=== PATIENT | male | born 1990 | race Caucasian/White ===

== ENCOUNTER 2018-07-12 00:26 | Emergency (ER) | payer SELFPAY ==
[2018-07-12] MEDS ORDERED: LORazepam 2 MG/ML INJ IM ONE (00:31)
[2018-07-12] MEDS ORDERED: HALOPERIDOL LACT 5 MG/ML INJ IM ONE (00:31)
--- NOTE | 2018-07-12 00:34 | EDPHY ---
H & P Time Seen by Provider: 07/12/18 00:30 HPI/ROS: Chief Complaint: Short of breath, alcohol intoxication HPI: 27-year-old male with a history of asthma has been drinking alcohol tonight became short of breath. He called 911. On EMS arrival the patient was clearly quite intoxicated. During the ride here he became increasingly agitated. He became aggressive with paramedics and required physical restraint. He normally takes Advair albuterol and Ativan. He has not taken his medications for 3 days. Denies cough. Denies fevers or chills. Does admit to drinking alcohol tonight. Denies any other drug use. No chest pain. No falls or head injuries. ROS: 10 systems were reviewed and were negative except those elements noted in the HPI. PMH: Asthma Social History: No smoking, occasional alcohol, no recreational drug use Family History: non-contributory Physical Exam: Gen: Awake, Alert, agitated, combative, restrained HEENT: Nose: no rhinorrhea Eyes: PERRLA, EOMI Mouth: Moist mucosa Neck: Supple, no JVD Chest: nontender, lungs clear to auscultation Heart: S1, S2 normal, no murmur Abd: Soft, non-tender, no guarding Back: no CVA tenderness, no midline tenderness Ext: no edema, non-tender Skin: no rash Neuro: CN II-XII intact, Sensation grossly intact, Strength 5/5 in bilateral upper and lower extremities Constitutional: Initial Vital Signs Heart Rate 100 07/12/18 00:30 Respiratory Rate 18 07/12/18 00:30 Blood Pressure 120/83 H 07/12/18 00:30 O2 Sat (%) 95 07/12/18 00:30 O2 Delivery Mode Room Air O2 (L/minute) 2 Allergies/Adverse Reactions: tramadol Allergy (Verified 07/12/18 00:33) Home Medications: Medication Instructions Recorded Advair 100/50 (*) 07/12/18 Flovent Diskus 07/12/18 Lorazepam 07/12/18 traZODone 07/12/18 Medical Decision Making ED Course/Re-evaluation: Patient is awake and alert and ambulating unassisted in the emergency department. Patient will be going home with a sober ride. - Data Points Medications Given: Discontinued Medications Haloperidol Lactate (Haldol Injection) 5 mg IM EDNOW ONE Stop: 07/12/18 00:32 Last Admin: 07/12/18 00:39 Dose: 5 mg Lorazepam (Ativan Injection) 2 mg IM EDNOW ONE Stop: 07/12/18 00:32 Last Admin: 07/12/18 00:39 Dose: 2 mg Ondansetron HCl (Zofran Odt) 4 mg PO EDNOW ONE Stop: 07/12/18 00:58 Last Admin: 07/12/18 00:57 Dose: 4 mg Departure - Departure Disposition: Home, Routine, Self-Care Clinical Impression: Alcoholic intoxication Condition: Good Instructions: Alcohol Intoxication (ED) Referrals: Patient,NotPresent [Primary Care Provider] - As per Instructions
[2018-07-12] MEDS ORDERED: ONDANSETRON DISINTEGRATING 4 MG TAB ONE (00:53)
[2018-07-12] MEDS ORDERED: ONDANSETRON DISINTEGRATING 4 MG TAB PO ONE (00:57)
[2018-07-12 06:22] VITALS: BP 104/60
== END 2018-07-12 06:21 | disposition home or self-care (01) ==
DX: F10.129 Alcohol abuse with intoxication, unspecified (principal)
CPT/HCPCS: J1630; J2060

== ENCOUNTER 2018-11-26 17:39 | Inpatient (IN) | payer MEDICAID ==
[2018-11-26] MEDS ORDERED: LORazepam 2 MG/ML INJ IVP ONE ×2 (17:43→19:09)
--- NOTE | 2018-11-26 17:44 | EDPHY ---
H & P Time Seen by Provider: 11/26/18 17:42 HPI/ROS: CHIEF COMPLAINT: Chest pain, dyspnea, abdominal pain , possible GI bleed HISTORY OF PRESENT ILLNESS: 28-year-old male arrives via ambulance. States that he has been on a 2 week binge of alcohol, called 911 today because of 3 days of intractable vomiting, possible hematemesis, melanotic appearing stools, epigastric pain, chest pain, dyspnea, anxiety. Denies seizure. Denies trauma or fall. Denies suicidal or homicidal ideation PRIMARY CARE PROVIDER: REVIEW OF SYSTEMS: 10 systems reviewed and negative with the exception of the elements mentioned in the history of present illness PAST MEDICAL & SURGICAL HISTORY: history of alcoholism SOCIAL HISTORY: Last drink of alcohol 4 hr prior to EMS arrival PHYSICAL EXAM (Prior to examination, patient consented to physical exam, hands were washed and my usual and customary physical exam procedures followed) 1) GENERAL: [Well-developed, well-nourished, alert and oriented. Appears , anxious appearing, appears uncomfortable, pacing 2) HEAD: Normocephalic, atraumatic 3) HEENT: Pupils equal, round, reactive to light bilaterally. Sclera anicteric. Nasopharynx, oropharynx, clear, no lesions. Dry mucous membranes. Ears bilaterally with normal tympanic membranes. 4) NECK: Full range of motion, no meningeal signs. 5) LUNGS: Clear auscultation bilaterally, no wheezes, no rhonchi, no retractions. 6) HEART: Regular rate and rhythm, no murmur, no heave, no gallop. 7) ABDOMEN: No guarding, no rebound, no focal tenderness, negative McBurney's, negative Lux's, negative Rovsing's, negative peritoneal sign, 8) MUSCULOSKELETAL: Moving all extremities, no focal areas of tenderness, no obvious trauma. No peripheral edema or discoloration. 9) BACK: No CVA tenderness, no midline vertebral tenderness, no fluctuance, no step-off, no obvious trauma, no visual or palpable abnormality. 10) SKIN: No rash, no petechiae. 11) Psychiatric: Patient is oriented X 3, there is no agitation. 12) RECTAL: Patient declines rectal exam DIFFERENTIAL DIAGNOSIS: In no particular order, including but not limited to myocardial ischemia, acute alcohol withdrawal, Jane-Crystal tear, GI bleed, delirium tremens, pulmonary embolus, chest wall pain, pleural inflammation and pulmonary infectious causes. - Medical/Surgical History Hx Asthma: Yes Hx Chronic Respiratory Disease: No Hx Diabetes: No Hx Cardiac Disease: No Hx Renal Disease: No Hx Cirrhosis: No Hx Alcoholism: No Hx HIV/AIDS: No Hx Splenectomy or Spleen Trauma: No Other PMH: inguinal hernia with repair, asthma, chronic pain - Social History Smoking Status: Never smoked Constitutional: Initial Vital Signs Temperature (C) 37.3 C 11/26/18 17:44 Heart Rate 130 H 11/26/18 17:44 Respiratory Rate 19 11/26/18 17:44 Blood Pressure 137/90 H 11/26/18 17:44 O2 Sat (%) 95 11/26/18 17:44 O2 Delivery Mode Room Air Allergies/Adverse Reactions: tramadol Allergy (Verified 11/26/18 21:42) Hives Home Medications: Medication Instructions Recorded Advair 100/50 (*) 07/12/18 Flovent Diskus 07/12/18 Lorazepam 07/12/18 traZODone 07/12/18 Melatonin [Melatonin 3 MG (*)] 3 mg PO HS PRN 11/26/18 Sumatriptan Succinate [Imitrex] 11/26/18 Medical Decision Making - Diagnostics Imaging Results: Imaging Impressions Chest X-Ray 11/26/18 17:43 Impression: Normal. ED Course/Re-evaluation: 6:04 p.m.: Patient notes dark possible bloody appearance to his emesis as well as to his bowel movements. I recommended digital rectal exam which he declines. 7:14 p.m.: I entered the room to re-evaluated the patient. He received 2 mg of Ativan, IV fluids he remains tachycardic. He has vomited bloody appearing emesis on the floor. He remains appearing uncomfortable complaints of epigastric and chest pain. He has received Protonix and Zantac. His D-dimer is negative which I think adequately excludes pulmonary embolus in this patient whom I have a moderate pretest suspicion. Doubt AR in the presence of negative troponin and being symptomatic for 2-3 days. Chest x-ray also shows no evidence of pneumothorax, no evidence of pneumomediastinum or acute infectious pathology. Plan will be administration of further benzodiazepine, more than likely hospital admission for suspected acute alcohol withdrawal the patient may be acutely intoxicated as well. Alcohol level pending at this time. 8:51 p.m.: Patient has been observed in the ER for multiple hours. He has been CIWA protocol. He has been given multiple rounds of IV fluids as well as benzodiazepine, remains tachycardic. I do not think the patient can be discharged home or [facility] to [facility]. He also noted to have hematemesis , given Protonix and Zantac, GI cocktail as well as continued IV fluids. He declines digital rectal exam. Consulted with Dr. Godinez this time will admit patient. Care of patient under supervision of secondary supervising physician Dr Martinez with whom I discussed case. - Data Points Laboratory Results: Laboratory Results 11/26/18 17:50 11/26/18 11/26/18 11/26/18 19:13 18:30 18:17 PT 14.8 SEC SEC (12.0-15.0) INR 1.14 (0.83-1.16) APTT 28.7 SEC SEC (23.0-38.0) D-Dimer 0.29 ug/mLFEU ug/mLFEU (0.00-0.50) Sodium Potassium Chloride Carbon Dioxide Anion Gap BUN Creatinine Estimated GFR Glucose Calcium Total Bilirubin Conjugated Bilirubin Unconjugated Bilirubin AST ALT Alkaline Phosphatase POC Troponin I 0.00 ng/mL ng/mL (0.00-0.08) Total Protein Albumin Lipase Stool Occult Bld Scrn POSITIVE H (NEGATIVE) Ethyl Alcohol 11/26/18 17:50 PT INR APTT D-Dimer Sodium 141 mEq/L mEq/L (135-145) Potassium 3.7 mEq/L mEq/L (3.5-5.2) Chloride 101 mEq/L mEq/L (97-110) Carbon Dioxide 19 mEq/l L mEq/l (22-31) Anion Gap 21 mEq/L H mEq/L (6-14) BUN 14 mg/dL mg/dL (7-23) Creatinine 1.0 mg/dL mg/dL (0.7-1.3) Estimated GFR > 60 Glucose 131 mg/dL H mg/dL (70-100) Calcium 9.4 mg/dL mg/dL (8.5-10.4) Total Bilirubin 0.9 mg/dL mg/dL (0.1-1.4) Conjugated Bilirubin 0.4 mg/dL mg/dL (0.0-0.5) Unconjugated Bilirubin 0.5 mg/dL mg/dL (0.0-1.1) AST 65 IU/L H IU/L (17-59) ALT 76 IU/L H IU/L (21-72) Alkaline Phosphatase 88 IU/L IU/L (38-126) POC Troponin I Total Protein 8.6 g/dL H g/dL (6.3-8.2) Albumin 5.2 g/dL H g/dL (3.5-5.0) Lipase 155 IU/L IU/L (23-300) Stool Occult Bld Scrn Ethyl Alcohol 359 mg/dL H mg/dL (0-10) Medications Given: Thiamine HCl 500 mg/ Sodium (Chloride) 105 mls @ 210 mls/hr IV Q24H MAUREEN Stop: 05/25/19 21:44 Last Admin: 11/26/18 22:04 Dose: 105 mls Lorazepam (Ativan Injection) 0 mg IVP Q1H PRN; Protocol PRN Reason: Alcohol Withdrawal w/IV access Stop: 11/27/18 07:27 Last Admin: 11/26/18 20:21 Dose: 2 mg Lorazepam (Ativan) 0 mg PO Q4HRS PRN; Protocol PRN Reason: Alcohol W/D w/ No IV Access Stop: 05/25/19 21:40 Last Admin: 11/26/18 22:04 Dose: 2 mg Ondansetron HCl (Zofran) 4 mg IVP Q4HRS PRN PRN Reason: Nausea/Vomiting, Can't Take PO Stop: 05/25/19 21:38 Last Admin: 11/26/18 22:10 Dose: 4 mg Discontinued Medications Al Hydroxide/Mg Hydroxide (Maalox Susp) 30 ml PO ONCE ONE Stop: 11/26/18 19:22 Last Admin: 11/26/18 19:27 Dose: 30 ml Al Hydroxide/Mg Hydroxide (Maalox Susp) 30 ml PO ONCE ONE Stop: 11/26/18 21:39 Last Admin: 11/26/18 22:04 Dose: 30 ml Hyoscyamine Sulfate (Levsin, Hyomax-Sl) 0.25 mg PO ONCE ONE Stop: 11/26/18 19:22 Last Admin: 11/26/18 19:27 Dose: 0.25 mg Hyoscyamine Sulfate (Levsin, Hyomax-Sl) 0.25 mg PO ONCE ONE Stop: 11/26/18 21:39 Last Admin: 11/26/18 22:03 Dose: 0.25 mg Sodium Chloride (Ns) 1,000 mls @ 0 mls/hr IV ONCE ONE; Wide Open PRN Reason: Protocol Stop: 11/26/18 18:07 Last Admin: 11/26/18 18:07 Dose: 1,000 mls Sodium Chloride (Ns) 1,000 mls @ 0 mls/hr IV ONCE ONE PRN Reason: Wide Open Stop: 11/26/18 19:22 Last Admin: 11/26/18 19:26 Dose: 1,000 mls Lidocaine (Lidocaine 2% Viscous) 15 ml PO ONCE ONE Stop: 11/26/18 19:22 Last Admin: 11/26/18 19:27 Dose: 15 ml Lidocaine (Lidocaine 2% Viscous) 15 ml PO ONCE ONE Stop: 11/26/18 21:39 Last Admin: 11/26/18 22:03 Dose: 15 ml Lorazepam (Ativan Injection) 1 mg IVP EDNOW ONE Stop: 11/26/18 17:44 Last Admin: 11/26/18 18:06 Dose: 1 mg Lorazepam (Ativan Injection) 2 mg IVP EDNOW ONE Stop: 11/26/18 19:10 Last Admin: 11/26/18 19:17 Dose: 2 mg Pantoprazole Sodium (Protonix) 40 mg IVP EDNOW ONE Stop: 11/26/18 18:34 Last Admin: 11/26/18 18:50 Dose: 40 mg Ranitidine HCl (Zantac) 50 mg IVP EDNOW ONE Stop: 11/26/18 18:33 Last Admin: 11/26/18 18:48 Dose: 50 mg Point of Care Test Results: Chemistry 11/26/18 18:17 POC Troponin I 0.00 ng/mL ng/mL (0.00-0.08) Departure - Departure Disposition: [facility] Clinical Impression: Alcoholic intoxication Qualifiers: Complication of substance-induced condition: with unspecified complication Qualified Code(s): F10.929 - Alcohol use, unspecified with intoxication, unspecified Alcohol dependence Qualifiers: Substance use status: with intoxication Complication of substance-induced condition: with unspecified complication Qualified Code(s): F10.229 - Alcohol dependence with intoxication, unspecified Alcohol withdrawal Qualifiers: Complication of substance-induced condition: with unspecified complication Qualified Code(s): F10.239 - Alcohol dependence with withdrawal, unspecified Hematemesis Qualifiers: Nausea presence: with nausea Qualified Code(s): K92.0 - Hematemesis Condition: Fair
[2018-11-26 18:02] LABS: PLATELET COUNT 225 10^3/uL (150-400)
[2018-11-26] MEDS ORDERED: NS 1,000 ML IV ONE ×2 (18:06→19:21)
[2018-11-26] MEDS ORDERED: RANITIDINE 50 MG/2 ML VIAL IVP ONE (18:32)
[2018-11-26] MEDS ORDERED: PANTOPRAZOLE SODIUM 40 MG VIAL IVP ONE (18:33)
[2018-11-26 18:49] LABS: INR 1.14 (0.83-1.16); PROTIME(PATIENT) 14.8 SEC (12.0-15.0)
[2018-11-26] MEDS ORDERED: MAG HYDROX/AL HYDROX/SIMETH 30 ML UDCUP PO ONE ×2 (19:21→21:38)
[2018-11-26] MEDS ORDERED: HYOSCYAMINE SULFATE 0.125 MG TAB PO ONE ×2 (19:21→21:38)
[2018-11-26] MEDS ORDERED: LIDOCAINE 2% VISCOUS 15 ML UDCUP PO ONE ×2 (19:21→21:38)
[2018-11-26] MEDS ORDERED: LORazepam 1 MG TAB PO PRN ×2 (19:27→21:41)
[2018-11-26] MEDS: LORazepam 2 MG/ML INJ IVP PRN ×2 (20:21→22:25)
--- NOTE | 2018-11-26 20:22 | CPEKG ---
Test Reason : OPEN Blood Pressure : / mmHG Vent. Rate : 131 BPM Atrial Rate : 133 BPM P-R Int : 065 ms QRS Dur : 089 ms QT Int : 292 ms P-R-T Axes : 149 076 -28 degrees QTc Int : 431 ms Sinus or ectopic atrial tachycardia Ventricular premature complex Confirmed by Dariela Martinez ([id number]) on 11/26/2018 8:21:51 PM Referred By: Dariela Martinez Confirmed By:Dariela Martinez
[2018-11-26] MEDS ORDERED: ACETAMINOPHEN 325 MG TAB PO PRN (21:39)
[2018-11-26] MEDS ORDERED: FLUMAZENIL 0.5 MG/5 ML MDV IVP PRN (21:41)
[2018-11-26] MEDS: THIAMINE HCL 500 MG in NS 100 ML IV SCH (22:04)
--- NOTE | 2018-11-26 22:06 | GHP ---
DATE OF ADMISSION: 11/26/2018 CHIEF COMPLAINT: Hematemesis. HISTORY OF PRESENT ILLNESS: A 28-year-old male who engages in binge alcohol intake. Over the last s everal weeks, he has been drinking quite heavily. Over the last several days, he has been having epi sodes of hematemesis. He has had intractable vomiting. He does admit to some melena as well. He do es admit also epigastric pain. He says he does not usually go into full on alcohol withdrawal. He h as never had an ulcer in the past. REVIEW OF SYSTEMS: A 10-point review of systems was obtained and negative. PAST MEDICAL HISTORY: Asthma, migraines. MEDICATIONS: Reviewed. SOCIAL HISTORY: Alcohol abuse as above. FAMILY HISTORY: Reviewed noncontributory. PHYSICAL EXAMINATION: VITAL SIGNS: Afebrile, blood pressure is 113/78, heart rate in the 1-teens. GENERAL: Patient is slightly anxious, but no apparent distress. HEENT: Nonicteric sclerae. Extrao cular movements intact. Moist mucous membranes. NECK: Supple. No thyromegaly. LUNGS: Good effor t. Clear to auscultation. CARDIOVASCULAR: Slightly tachycardic. No murmurs or gallops. ABDOMEN: Positive bowel sounds. Soft. Mild epigastric tenderness. EXTREMITIES: No clubbing, cyanosis, or edema. SKIN: Without rash. NEURO: He is alert, oriented, does not really seem like he is withdraw ing that hard. Does not have a lot in the way of tremor. LABS: Hemoglobin slightly low at 12 and MCV is actually low at 69. AST and ALT are slightly elevate d. BUN is not elevated. Alcohol level is 359. ASSESSMENT: This is a 28-year-old male presenting with hematemesis and alcohol withdrawal. PLAN: 1. Hematemesis. Hemoglobin is actually pretty good considering. Will continue watch to see as we h ydrate him. He does have microcytic anemia and so it might be worth an EGD, but would wait until he finishes withdrawing prior to that. Will put him on Protonix. I am checking iron studies. We can g donavon him IV iron if that is negative-low. 2. Alcohol withdrawal. Placed him on the protocol. /[id number]/MODL
[2018-11-26] MEDS: ONDANSETRON 4 MG/2 ML VIAL IVP PRN (22:10)
[2018-11-26] MEDS: HYDROmorphONE/DILAUDID 1 MG/ML INJ IVP PRN (23:53)
[2018-11-27] MEDS ORDERED: SUCRALFATE 1 GM/10 ML UDCUP PO ONE (02:03)
[2018-11-27] MEDS: LORazepam 2 MG/ML INJ IVP PRN ×8 (02:32→15:24)
[2018-11-27] MEDS: ONDANSETRON 4 MG/2 ML VIAL IVP PRN ×2 (04:37→16:18)
[2018-11-27 05:16] LABS: PLATELET COUNT 100 10^3/uL (150-400)
[2018-11-27] MEDS: NS 1,000 ML IV SCH ×2 (06:46→12:54)
[2018-11-27] MEDS: DEXMEDETOMIDINE HCL 400 MCG in NS 100 ML IV SCH ×2 (06:46→12:52)
[2018-11-27] MEDS: PANTOPRAZOLE SODIUM 40 MG VIAL IVP SCH ×2 (09:49→20:13)
--- NOTE | 2018-11-27 09:55 | PDMN ---
Medical Necessity Medical necessity: [facility] – [place] [id number] Substance Related D/O, 2 days: 28 yo in acute etoh w /d w/ hematemesis. H/H dropped overnight -07/31, on precedex drip in ICU. Tachy 110-130. IP status as pt will require>2MN for tx/management of acute etoh w/d.
[2018-11-27] MEDS ORDERED: chlordiazePOXIDE 25 MG CAP PO PRN (10:13)
--- NOTE | 2018-11-27 11:25 | HOSPPROG ---
Hospitalist Progress Note Assessment/Plan: Upper GI Bleed - Presenting with hematemesis, melena - Hgb dropped overnight 12.1 -> 8.9 - GI consulted this AM for further evaluation and management, likely EGD today - Continue PPI IV BID, patient denies hx of variceal bleeds, no octreotide started overnight - Continue to monitor H/H Acute Blood Loss Anemia - UGIB as above - Fe studies performed overnight indicating Fe Deficiency in setting of UGIB - Will start PO Fe Sulfate this afternoon - Continue to monitor H/H, transfuse >05/21 Alcohol Withdrawal - ETOH 359 on admission - Started on CIWA protocol, tx to ICU overnight for precidex gtt initiation - Will start scheduled Librium 25 mg TID this morning - Continue CIWA with IV Benzos PRN - Wean Precedex as tolerated - Discuss alcohol cessation with patient FEN: IVF, NPO Code: FULL DVT PPx: Hold in setting of GIB Dispo: Pending clinical course Subjective: Patient reports epigastric pain this AM Objective: Vital Signs Temp Pulse Resp BP Pulse Ox 37 C 82 17 114/68 95 11/27/18 08:00 11/27/18 10:00 11/27/18 10:00 11/27/18 10:00 11/27/18 10:00 Laboratory Results 11/27/18 04:25 11/27/18 04:25 11/26/18 11/27/18 11/28/18 05:59 05:59 05:59 Intake Total 240 Output Total 450 Balance -210 PT 14.8 SEC (12.0-15.0) 11/26/18 18:30 INR 1.14 (0.83-1.16) 11/26/18 18:30 - Physical Exam Constitutional: uncomfortable Eyes: PERRL Ears, Nose, Mouth, Throat: dry mucous membranes Cardiovascular: regular rate and rhythym Respiratory: no respiratory distress Gastrointestinal: tenderness, No guarding, No rebound Skin: warm Neurologic: AAOx3 Psychiatric: not encephalopathic ICD10 Worksheet Patient Problems: Problems Problem Status Onset Alcohol dependence Acute Alcohol withdrawal Acute Alcoholic intoxication Acute Hematemesis Acute
[2018-11-27] MEDS ORDERED: PROPOFOL 200 MG/20 ML VIAL ONE ×2 (14:19→14:20)
[2018-11-27] MEDS ORDERED: EPINEPHrine 1 MG/ML INJ ONE (14:20)
--- NOTE | 2018-11-27 14:34 | PDCONSULT ---
Hyperbaric Nurse Note: CC: Hematemesis, melena and post-hemorrhagic anemia. Patient interviewed and examined. Chart reviewed and dictated. Briefly; 28 yo male with chronic alcoholism admitted last night with intractable N/V and melena. Prior history of UGI bleed and EGD with no varices found at outside hopital. Paitne having ETOH W/D symtoms during this admission. We will perform emergent EGD today. He is at increased risk for complication due to possible aspiration and will be difficult to sedate due to DT's. Will give IV general and ET intubation. Altaf Espinosa MD
[2018-11-27] MEDS ORDERED: fentaNYL 100 MCG/2 ML INJ ONE (14:35)
--- NOTE | 2018-11-27 14:49 | GIREPORT ---
Replaced By [facility] - Endoscopy Department Patient Name: Gregory Sorto Procedure Date: 11/27/2018 2:08 PM Patient Type: Inpatient Attending MD/ ER Physician: Altaf Espinosa MD Procedure: Upper GI endoscopy Indications: Acute post hemorrhagic anemia, Hematemesis, Melena Providers: Altaf Espinosa MD Medicines: General Anesthesia Complications: No immediate complications. Description of Procedure: After obtaining informed consent, the endoscope was passed under direct vision. Throughout the procedure, the patient's blood pressure, pulse, and oxygen saturations were monitored continuously. The Endoscope was intro duced through the mouth, and advanced to the third part of duodenum. The uppe r GI endoscopy was accomplished without difficulty. The patient tolerated th e procedure well. Findings: The examined esophagus was normal. Patchy moderate inflammation characterized by erythema, friability and granularity was found in the entire examined stomach. Biopsies were venessa en with a cold forceps for histology. Estimated Blood Loss: Estimated blood loss: none. Post Op Diagnosis: - Normal esophagus. - Alcoholic gastritis. Biopsied. Recommendation: - Return patient to ICU for ongoing care. - Clear liquid diet when alert. - Continue present medications. - The findings and recommendations were discussed with the patient's pr imary physician. Attending Participation: I personally performed the entire procedure. Altaf Espinosa MD Altaf Espinosa MD 11/27/2018 2:48:48 PM This report has been signed electronicallyAltaf Espinosa MD Number of Addenda: 0 Note Initiated On: 11/27/2018 2:08 PM [email or web address]
--- NOTE | 2018-11-27 16:04 | GCON ---
PULMONARY/CRITICAL CARE CONSULTATION DATE OF CONSULTATION: 11/27/2018 REFERRING PHYSICIAN: Marciano Sauer DO REASON FOR REFERRAL: Evaluation and management of alcohol withdrawal and anemia. HISTORY: The patient is a 28-year-old male with a history of binge alcohol drinking. Over the last few weeks, he has been drinking quite heavily. Over the last few days, he has been having episodes o f hematemesis with some melena, as well as intractable vomiting. He also had some epigastric pain. He has not typically gone into alcohol withdrawal, and has no prior history of significant GI bleedin g. He was admitted yesterday and had an elevated alcohol level at that time. He was started on a CI WA protocol and overnight he required large amount of Ativan, so was transferred to the ICU this morn ing for Precedex drip, which was started with good control of his symptoms in conjunction with IV Ati van. He reports no further upper GI bleeding. He just returned from an EGD. He currently has some epigastric discomfort, but otherwise no complaints. He had some visual hallucinations earlier, but d enies any currently. PAST MEDICAL HISTORY: 1. Asthma. 2. Migraines. MEDICATIONS: Albuterol, Advair, melatonin, hydroxyzine, and Imitrex. ALLERGIES: Tramadol. SOCIAL HISTORY: Patient has intermittent alcohol abuse as above. FAMILY HISTORY: Unremarkable. REVIEW OF SYSTEMS: A 10-point review of systems adds nothing to the History of Present Illness. PHYSICAL EXAMINATION: GENERAL: The patient is sedated and somnolent, but arousable. VITAL SIGNS: His blood pressure is 119/75, with a heart rate of 89. He is afebrile. Oxygen saturations are 93% o n room air at rest. HEENT: Normocephalic and atraumatic. No icterus. NECK: No JVD. Trachea is m idline. CHEST: Clear to auscultation. CARDIAC: Regular rate and rhythm without murmur. ABDOMEN: Soft, nontender. Bowel sounds are present. EXTREMITIES: No clubbing, cyanosis, or edema. NEURO: The patient is somnolent, but arousable, and answers simple questions. There are no gross motor or sensory deficits. He is disoriented to time. LABORATORY: Hemoglobin is 8.9, down from 12.1 at admission. He is microcytic with an MCV of 70.5. An INR is 1.1. Chemistry group shows a bicarbonate of 20, up from 19 at admission. Iron stores are low with an iron level of 45 and a ferritin level of 9. An alcohol level was 359 at admission. A chest x-ray at admission was normal. Images reviewed by me. ASSESSMENT: 1. Hematemesis: An esophagogastroduodenoscopy revealed only alcoholic gastritis, with no varices or Jane-Crystal tear. 2. Microcytic anemia. The patient likely has chronic gastrointestinal blood loss. He had a drop in hemoglobin here. It could have been due to the subacute bleeding with hydration. 3. Asthma. The patient has no symptoms currently and has normal oxygen saturations. 4. Alcohol withdrawal. Patient had significant alcohol withdrawal symptoms overnight. The patient is fairly somnolent and sedated now after having received a total of 10 mg of Ativan on today's shift , as well as more Ativan overnight. RECOMMENDATIONS: 1. Follow serial H and H. 2. Begin iron replacement, once able to take p.o. 3. Add scheduled chlordiazepoxide p.o. to the p.r.n. Ativan. 4. Keep in the ICU today. If he does well on the current regimen for alcohol withdrawal and his hem oglobin does not drop significantly, he may be transferred back to the floor. /[id number]/MODL
[2018-11-27] MEDS: FERROUS SULFATE 325 MG TAB PO SCH (16:16)
[2018-11-27] MEDS: chlordiazePOXIDE 25 MG CAP PO SCH ×2 (16:16→21:05)
--- NOTE | 2018-11-27 17:50 | POSTANESTH ---
Post Anesthetic Evaluation Cardiovascular Status: Normal, Stable Respiratory Status: Normal, Stable Level of Consciousness/Mental Status: Can Participate in Eval Pain Control: Adequate, Prn Tx Ordered Nausea/Vomiting Control: Adequate, Prn Tx Ordered Complications Possibly Related to Anesthesia: None Noted
--- NOTE | 2018-11-27 17:50 | PDANEPAE ---
ANE Past Medical History - Pulmonary History Hx Oxygen in Use at Home: No Hx Sleep Apnea: No Sleep Apnea Screening Result - Last Documented: Negative - Endocrine History Hx Diabetes: No - Chronic Pain History Chronic Pain: Yes ANE Review of Systems Review of Systems: ANE Patient History - Allergies Allergies/Adverse Reactions: tramadol Allergy (Verified 11/26/18 21:42) Hives - Home Medications Home Medications: Albuterol Hfa Anes Only [Proair Hfa Icu (*)] 2 puffs IH Q4H PRN 07/12/18 [Last Taken Unknown] Fluticasone/Salmeter 100/50Mcg [Advair 100/50 (*)] 1 puffs IH BID 07/12/18 [ Last Taken Unknown] Melatonin [Melatonin 3 MG (*)] 3 mg PO HS PRN 11/26/18 [Last Taken Unknown] SUMAtriptan [Imitrex 50 MG (*)] 50 mg PO Q2H PRN 11/27/18 [Last Taken Unknown] hydrOXYzine HCL 50 mg PO Q6 PRN 11/27/18 [Last Taken Unknown] - NPO status NPO Since - Liquids (Date): 11/26/18 NPO Since - Liquids (Time): 08:00 NPO Since - Solids (Date): 11/24/18 NPO Since - Solids (Time): 08:00 - Smoking Hx Smoking Status: Never smoked ANE Labs/Vital Signs - Labs Result Diagrams: 11/27/18 04:25 11/27/18 04:25 - Vital Signs Blood Pressure: 111/84 Heart Rate: 93 Respiratory Rate: 21 O2 Sat (%): 94 Height: 180.34 cm Weight: 94.6 kg ANE Physical Exam - Airway Neck exam: decreased ROM Mallampati Score: Class 2 Mouth exam: normal dental/mouth exam - Pulmonary Pulmonary: no respiratory distress - Cardiovascular Cardiovascular: regular rate and rhythym - ASA Status ASA Status: II, E ANE Anesthesia Plan Anesthesia Plan: general endotracheal anesthesia Urgent/Emergent Case: Darinel guzman completed preop but documented later for safe timely pt care
[2018-11-27] MEDS: OXYCODONE/APAP 5/325 TAB PO PRN (20:17)
[2018-11-27] MEDS: ONDANSETRON DISINTEGRATING 4 MG TAB PO PRN (20:17)
[2018-11-27] MEDS ORDERED: FERROUS SULFATE 325 MG TAB PO SCH (21:00)
[2018-11-27] MEDS: THIAMINE HCL 500 MG in NS 100 ML IV SCH (21:29)
--- NOTE | 2018-11-28 00:05 | ASMTCMCOM ---
CM Note CM Note Notes: Reviewed chart, spoke with Dr. Sauer. Pt admitted for hematemesis and acute alcohol withdrawal. History includes asthma, migraines and ETOH abuse. Pt is single and lives in [place]. Per ICU rounds, pt's CIWA score remains 11 today. Pt would likely benefit from alcohol resources when more clear. Discharge needs remain uncertain at this time. CM will continue to follow. Discharge Plan: To be determined Date Signed: 11/28/2018 12:04 AM Electronically Signed By:Halie Kincaid RN
[2018-11-28] MEDS: ONDANSETRON DISINTEGRATING 4 MG TAB PO PRN (00:20)
[2018-11-28] MEDS: OXYCODONE/APAP 5/325 TAB PO PRN ×5 (00:20→20:36)
--- NOTE | 2018-11-28 05:11 | GCON ---
DATE OF CONSULTATION: 11/27/2018 REFERRING PHYSICIAN: Marciano Sauer DO REASON FOR CONSULTATION: Hematemesis and anemia. HISTORY OF PRESENT ILLNESS: The patient is a 28-year-old gentleman with a history of binge alcohol drinking. He was admitted to the hospital earlier today with a 2-week history of heavy drinking, followed by severe nausea and vomiting and several episodes of hematemesis. He also complains of some epigastric pain thereafter. He did state he had one black stool prior to admission. He does have a prior history of EGD for upper GI bleeding, which he states was unremarkable. MEDICATIONS: Albuterol inhaler, Advair, melatonin, hydroxyzine, and Imitrex for outpatient medications. ALLERGIES: Tramadol. PAST MEDICAL HISTORY: Significant for asthma and migraines. PASR SURGICAL HISTORY: EGD without varices seen several years ago, location and date unknown. SOCIAL HISTORY: He has a history of binge drinking. FAMILY HISTORY: Negative for peptic ulcer disease or GI malignancies. REVIEW OF SYSTEMS: Other than as noted in HPI, his comprehensive review of systems is negative. PHYSICAL EXAMINATION: GENERAL: a well developed, well nourished man, somewhat restless, lying in bed. VITAL SIGNS: Temperature was 36.6 Celsius, pulse 87 regular, blood pressure 121/78, respiratory rate was 16, O2 saturation 94% on room air. INTEGUMENT: Multiple tattoos of the upper extremities, otherwise clear. HEENT: Head atraumatic, normocephalic. Pupils equally round, reactive to light. EOMs were intact. Sclerae nonicteric. Mucous membranes moist. Dentition was good. NECK: Supple. Trachea was midline. LYMPHATICS: No cervical or axillary adenopathy identified or palpated. PULMONARY: Lungs are clear to percussion and auscultation. CARDIOVASCULAR: Regular rhythm and rate. Normal S1, S2 without murmur. Peripheral pulses strong bilaterally. No pedal edema. GASTROINTESTINAL: Abdomen was supple. Positive bowel sounds. No liver or spleen tip palpable. No masses or tenderness noted. No fluid wave noted. EXTREMITIES: Without deformity. NEUROLOGIC: Patient was alert, oriented x3. There are no focal neurologic deficits. LABS: Hemoglobin on admission 12.1 with hematocrit 38.9, hemoglobin with hydration 8.9, hematocrit 29.1, platelets 100,000. Pro-time 14.8, INR 1.14, PTT 28.7. Electrolytes normal. BUN 15, creatinine 0.8, total bilirubin 0.9, AST 46, ALT 7, ALP 60. Alcohol level on admission at 1600 hours on 11/16/2018 was 359. IMPRESSION: 1. Hematemesis, melena, and post hemorrhagic anemia in a gentleman with chronic recurrent binge drinking. Rule out alcoholic gastritis. Rule out occult cirrhosis with esophageal varices. Rule out peptic ulcer. 2. Post hemorrhagic anemia. 3. Chronic alcoholism with binge drinking. RECOMMENDATIONS: 1. IV PPI therapy. 2. N.p.o. 3. Esophagogastroduodenoscopy later today, the patient should have this performed with propofol anesthesia due to his likely alcohol withdrawal syndrome and difficulty with sedating as well as should use endotracheal intubation for fear of aspiration with endoscopy with acute bleed. /[id number]/MODL MTDD
[2018-11-28] MEDS ORDERED: SUMAtriptan 25 MG TAB PO ONE (06:32)
[2018-11-28] MEDS: SUCRALFATE 1 GM/10 ML UDCUP PO SCH ×5 (06:36→20:37)
--- NOTE | 2018-11-28 07:06 | HOSPPROG ---
Hospitalist Progress Note Assessment/Plan: Hospitalist Night Float Note Notified by RN that patient was c/o LUQ abdominal pain and wanting to eat. he was also wanting to leave AMA. Arrived to hospital bed. Patient mostly was wanting to eat solid foods. Discussed EGD findings from yesterday noting gastritis. patient amenable to dosing of sucralfate while waiting for kitchen to open. He is also requesting assistance with voucher to return home. Advised that CM will be available later this morning. Patient amenable to stay until day team available to further discuss plan and recommendations with GI. AM HH slightly decreased. Objective: Vital Signs Temp Pulse Resp BP Pulse Ox 36.7 C 104 H 16 130/86 H 99 11/28/18 04:00 11/28/18 06:00 11/28/18 06:00 11/28/18 06:00 11/28/18 06:00 Laboratory Results 11/28/18 04:10 11/27/18 04:25 11/27/18 11/28/18 11/29/18 05:59 05:59 05:59 Intake Total 240 2967 Output Total 450 150 Balance -210 2817 PT 14.8 SEC (12.0-15.0) 11/26/18 18:30 INR 1.14 (0.83-1.16) 11/26/18 18:30 ICD10 Worksheet Patient Problems: Problems Problem Status Onset Alcohol dependence Acute Alcohol withdrawal Acute Alcoholic intoxication Acute Hematemesis Acute
[2018-11-28] MEDS: PANTOPRAZOLE SODIUM 40 MG VIAL IVP SCH (07:30)
[2018-11-28] MEDS: chlordiazePOXIDE 25 MG CAP PO SCH ×3 (07:30→22:06)
[2018-11-28] MEDS: FERROUS SULFATE 325 MG TAB PO SCH ×2 (07:30→17:45)
[2018-11-28] MEDS: HYDROmorphONE/DILAUDID 1 MG/ML INJ IVP PRN ×2 (08:18→12:25)
[2018-11-28] MEDS: metroNIDAZOLE 500 MG TAB PO SCH ×3 (08:37→22:06)
[2018-11-28] MEDS: PANTOPRAZOLE SODIUM 40 MG TAB PO SCH ×2 (08:39→20:37)
--- NOTE | 2018-11-28 10:26 | SOAPPROG ---
SOAP Progress Note Assessment/Plan: Assessment: 1. UGI bleed secondary to alcoholic gastritis; stable without further bleeding. 2. Post-hemorrhagic anemia; stable. 3. New dx of C. diff in stool. 4. Patient requests discharge from hospital. Plan: 1. Protonix 40 mg PO Qam x 2 months. 2. Agree with Metronidazole therapy for C. Diff. 3. OK to D/C home. No outpatient GI F/U needed. 4. Recommend ETOH abstinence. Altaf Espinosa MD 11/28/18 10:23 Subjective: CC: GI Bleed. Interval HPI: No melena, tolerating regular diet. C/O joints and muscles hurting. Wants to go home. Objective: Vital Signs Temp Pulse Resp BP Pulse Ox 36.7 C 110 H 20 101/64 99 11/28/18 04:00 11/28/18 08:00 11/28/18 08:00 11/28/18 08:00 11/28/18 08:00 Microbiology 11/27/18 21:35 Gastrointestinal Tract Panel (PCR) - Final Stool Clostridium Difficile Detected Laboratory Results 11/28/18 07:41 11/27/18 04:25 11/27/18 11/28/18 11/29/18 05:59 05:59 05:59 Intake Total 240 2967 Output Total 450 150 Balance -210 2817 PT 14.8 SEC (12.0-15.0) 11/26/18 18:30 INR 1.14 (0.83-1.16) 11/26/18 18:30 Physical Exam - Physical Exam General Appearance: WD/WN, alert, mild distress Respiratory: lungs clear, normal breath sounds Cardiac/Chest: regular rate, rhythm Skin: normal color, warm/dry Neuro/Psych: alert, normal mood/affect, oriented x 3 ICD10 Worksheet Patient Problems: Problems Problem Status Onset Alcohol dependence Acute Alcohol withdrawal Acute Alcoholic intoxication Acute Hematemesis Acute
--- NOTE | 2018-11-28 11:04 | PDINTPN ---
Loom Cleaner Progress Note Assessment/Plan: Assessment: Iron deficiency anemia: Likely due to alcoholic gastritis. Hemoglobin stable since yesterday. On iron replacement Alcohol abuse: Binge drinking. Had signs of withdrawal for the 1st 2 days of hospitalization, responded to increased dose of Ativan as well as starting scheduled Librium. Alcoholic gastritis on PPI C diff colitis: On Flagyl Plan: The patient wants to be discharged home today with his father can continue to help take care of him as he recovers. Will send home, should continue PPI, Flagyl, and iron. He still a bit sedated from benzodiazepines, CIWA score 0-2, does not need further benzodiazepines at this point. 11/28/18 11:01 11/28/18 11:04 Subjective: Feels a bit better, still quite weak. Starting to take p.o. But does not find hospital food very palpable. Denies hallucinations. Still a bit unsteady walking to the bathroom. Objective: Vital Signs Temp Pulse Resp BP Pulse Ox 36.7 C 113 H 14 126/86 H 95 11/28/18 04:00 11/28/18 10:00 11/28/18 10:00 11/28/18 10:00 11/28/18 10:00 Microbiology 11/27/18 21:35 Gastrointestinal Tract Panel (PCR) - Final Stool Clostridium Difficile Detected Laboratory Results 11/28/18 07:41 11/27/18 04:25 11/27/18 11/28/18 11/29/18 05:59 05:59 05:59 Intake Total 240 2967 Output Total 450 150 Balance -210 2817 PT 14.8 SEC (12.0-15.0) 11/26/18 18:30 INR 1.14 (0.83-1.16) 11/26/18 18:30 Stool C diff: Positive Physical Exam - Physical Exam General Appearance: alert, no apparent distress EENT: normal ENT inspection Neck: normal inspection Respiratory: lungs clear, normal breath sounds Cardiac/Chest: regular rate, rhythm, No edema Abdomen: normal bowel sounds, non-tender Skin: normal color, warm/dry Extremities: normal inspection Neuro/Psych: alert, normal mood/affect, No motor weakness ICD10 Worksheet Patient Problems: Problems Problem Status Onset Alcohol dependence Acute Alcohol withdrawal Acute Alcoholic intoxication Acute Hematemesis Acute
[2018-11-28] MEDS ORDERED: SUMAtriptan 50 MG TAB PO PRN (12:31)
[2018-11-28] MEDS ORDERED: MELATONIN 3 MG TAB PO PRN (12:31)
[2018-11-28] MEDS ORDERED: ALBUTEROL 60 PUFFS/8 GM MDI IH PRN (12:31)
[2018-11-28] MEDS: LORazepam 2 MG/ML INJ IVP PRN ×3 (13:08→20:36)
[2018-11-28] MEDS: hydrOXYzine HCL 50 MG TAB PO PRN ×2 (13:13→20:37)
--- NOTE | 2018-11-28 13:51 | HOSPPROG ---
Hospitalist Progress Note Assessment/Plan: Upper GI Bleed - Presenting with hematemesis, melena - Hgb dropped overnight 12.1 -> 8.9 11/27, stable this AM - GI consulted yesterday, s/p EGD which showed Alcoholic Gastritis - PPI IV BID transitioned to PO PPI BID for 8 weeks - Continue to monitor H/H C Diff Colitis - C Diff positive overnight - Started on 500 mg Flagyl TID for 10 days - Contact precautions in place Acute Blood Loss Anemia - UGIB as above - Fe studies performed indicating Fe Deficiency in setting of UGIB - Continue PO Fe Sulfate - Continue to monitor H/H, transfuse >05/21 Alcohol Withdrawal - ETOH 359 on admission - Started on CIWA protocol, tx to ICU overnight for precidex gtt initiation - Continue scheduled Librium - Continue CIWA with IV Benzos PRN - Discussed alcohol cessation with patient FEN: IVF, Regular Code: FULL DVT PPx: Holding in setting of GIB Dispo: Pending clinical course, likely d/c tomorrow if abdominal pain improves and able to tolerate diet well Subjective: Patient reports significant abdominal pain this AM Objective: Vital Signs Temp Pulse Resp BP Pulse Ox 37.0 C 101 H 16 133/84 H 100 11/28/18 12:00 11/28/18 12:00 11/28/18 12:00 11/28/18 12:00 11/28/18 12:00 Microbiology 11/27/18 21:35 Gastrointestinal Tract Panel (PCR) - Final Stool Clostridium Difficile Detected Laboratory Results 11/28/18 07:41 11/27/18 04:25 11/27/18 11/28/18 11/29/18 05:59 05:59 05:59 Intake Total 240 2967 Output Total 450 150 Balance -210 2817 PT 14.8 SEC (12.0-15.0) 11/26/18 18:30 INR 1.14 (0.83-1.16) 11/26/18 18:30 - Physical Exam Constitutional: uncomfortable Eyes: PERRL Ears, Nose, Mouth, Throat: moist mucous membranes Cardiovascular: regular rate and rhythym Respiratory: no respiratory distress Gastrointestinal: tenderness Skin: normal color Neurologic: AAOx3 Psychiatric: anxious ICD10 Worksheet Patient Problems: Problems Problem Status Onset Alcohol dependence Acute Alcohol withdrawal Acute Alcoholic intoxication Acute Hematemesis Acute
--- NOTE | 2018-11-28 17:58 | ASMTCAGE ---
CAGE Do you feel you ought to Answers: Yes cut down on your drinking or drug use? Do people annoy you by Answers: Yes criticizing your drinking or drug use? Do you feel guilty about Answers: Yes your drinking or drug use? Do you drink or use drugs Answers: Yes first thing in the morning ([employer])? Additional Comments Pt reports having a hx of binge drinking. Pt denies frequent alcohol use. Resources provided. Date Signed: 11/28/2018 05:57 PM Electronically Signed By:Halie Kincaid RN
--- NOTE | 2018-11-28 18:06 | ASMTCMCOM ---
CM Note CM Note Notes: Reviewed chart, spoke with Dr. Cain, Dr. Sauer and TWAN Jules. Pt to discharge home today per pt's request. Met with pt to complete CAGE screening. Pt states he "occassionally binge drinks 1-2 times per month." The pt denies having a "regular alcohol problem". Offered pt resources. Pt states [facility]) and "another rehab place in [place]." He also states he has been to [facility] for counseling on his drinking. The pt says "[facility] offered him antabuse, but he refuses to take it," stating "it made him really sick." New alcohol resources provided. Spent additional time with pt discussing life triggers and concerns. Pt anxious to discharge home secondary to concerns about his house (open windows, breaking pipes, etc). Offered to contact pt's sister, Samira , on pt's behalf. Unable to reach sister, GUTIERREZ, awaiting call back. Offered to contact pt's father, Yamil. Pt attempted several times without success. Pt very pale, sweaty, w/ complaints of severe abdominal pain. Encouraged pt to reconsider discharge. Update provided to Dr. Sauer and TWAN Jules. CM will continue to follow for any further issues or concerns. Discharge Plan: Home independent Date Signed: 11/28/2018 06:06 PM Electronically Signed By:Halie Kincaid RN
[2018-11-28] MEDS: FLUTICASONE/SALMETER 100/50MCG DISKUS IH SCH (20:38)
[2018-11-29] MEDS: oxyCODONE IR 5 MG TAB PO PRN ×3 (00:11→11:03)
[2018-11-29] MEDS: metroNIDAZOLE 500 MG TAB PO SCH (05:45)
[2018-11-29 08:23] VITALS: BP 148/93
[2018-11-29] MEDS: PANTOPRAZOLE SODIUM 40 MG TAB PO SCH (08:24)
[2018-11-29] MEDS: chlordiazePOXIDE 25 MG CAP PO SCH (08:24)
[2018-11-29] MEDS: SUCRALFATE 1 GM/10 ML UDCUP PO SCH ×2 (08:24→11:03)
[2018-11-29] MEDS: FERROUS SULFATE 325 MG TAB PO SCH (08:24)
[2018-11-29] MEDS: FLUTICASONE/SALMETER 100/50MCG DISKUS IH SCH (08:53)
--- NOTE | 2018-11-29 13:10 | PDDCSUM ---
Discharge Summary Discharge Summary: Date of Admission: 11/26/2018 Date of Discharge: 11/29/2018 Consults: GI Procedures: EGD Followup: PCP Hospital Course Problem List: Upper GI Bleed - Presented with hematemesis, melena - Hgb dropped overnight 12.1 -> 8.9 11/27 - GI consulted, s/p EGD which showed Alcoholic Gastritis - PPI IV BID transitioned to PO PPI BID for 8 weeks C Diff Colitis - C Diff positive - Started on 500 mg Flagyl TID for 10 days - Contact precautions in place Acute Blood Loss Anemia - UGIB as above - Fe studies performed indicating Fe Deficiency in setting of UGIB - Continue PO Fe Sulfate Alcohol Withdrawal - ETOH 359 on admission - Started on CIWA protocol, tx to ICU overnight for precidex gtt initiation - Was on Librium, CIWA - Discussed alcohol cessation with patient Time spent on discharge was >35 minutes with >50% of time spent on patient education and counseling.
--- NOTE | 2018-11-29 14:16 | ASMTDCNOTE ---
Case Management Discharge Discharge Order Complete? Answers: Yes Patient to Obtain Answers: Other Notes: Cab voucher Medications Transportation Arranged Answers: Taxi - Voucher Discharge Comments Notes: CM met with pt, he reports he has his ETOH resources and denied needing any additional information. Pt requested a cab ride back to his residence, CM provided this for him, pt was appreciative. Pt reported no other concerns at this time. Date Signed: 11/29/2018 02:15 PM Electronically Signed By:KYLAH Vergara
--- NOTE | 2018-11-29 14:17 | ASMTLACE ---
MARYE Length of stay for Answers: 2 days current admission Acuity / Level of Answers: Yes Care: Did the patient have an inpatient admission? Comorbidities - select Answers: Chronic pulmonary disease all that apply Other Notes: Migraines # of Emergency department Answers: 1-2 visits in the last 6 months Social determinants Answers: History of substance abuse (ETOH, street drugs, prescription drugs, etc.) Lack of community resources and/or lack of social support (no pcp, lives alone, transportation, sherry d) Score: 16 Date Signed: 11/29/2018 02:17 PM Electronically Signed By:KYLAH Vergara
[2018-11-29] MEDS ORDERED: THIAMINE HCL 100 MG TAB PO SCH (21:41)
== END 2018-11-29 13:10 | disposition home or self-care (01) | DRG 775 ==
LOC: EDUNIT# → F3E 21:39 → OBSVTOIN 21:40 → F2N 11-27 06:42 → F3E 11-28 19:54
PROVIDERS: ADMIT Internal Medicine; ATTEND Internal Medicine
PROC: HZ2ZZZZ Detoxification Services for Substance Abuse Treatment (ICD-10-PCS; 2018-11-26)
PROC: 0DB68ZX Excision of Stomach, Via Natural or Artificial Opening Endoscopic, Diagnostic (ICD-10-PCS; principal; 2018-11-27 14:00)
DX: F10.231 Alcohol dependence with withdrawal delirium (principal); K29.21 Alcoholic gastritis with bleeding; A04.72 Enterocolitis due to Clostridium difficile, not specified as recurrent; K92.0 Hematemesis; F10.229 Alcohol dependence with intoxication, unspecified; D50.0 Iron deficiency anemia secondary to blood loss (chronic); E86.0 Dehydration; K92.1 Melena; Y90.8 Blood alcohol level of 240 mg/100 ml or more; R10.13 Epigastric pain; J45.909 Unspecified asthma, uncomplicated; G43.909 Migraine, unspecified, not intractable, without status migrainosus
CPT/HCPCS: 84484-ER; 96374; G0480; J0171; J1170; J2060; J2405; J2704; J2780; J3010; J3411